=== PATIENT | male | born 1990 | race Asian ===

== ENCOUNTER 2016-06-17 11:13 | Emergency (ER) | payer MEDICAID ==
[~2016-06-17] VITALS: Ht 182.9 cm; Wt 99.8 kg
[2016-06-17 11:46] VITALS: BP 134/90
[2016-06-17 12:48] LABS: BASOPHILS # (AUTO) 0.1 K/uL (0.00-0.22); BASOPHILS % (AUTO) 1.5 % (0.0-2.0); EOSINOPHILS # (AUTO) 0.1 K/uL (0-0.4); EOSINOPHILS % (AUTO) 1.3 % (0.0-4.0); HEMATOCRIT 47.9 % (36-52); LYMPHOCYTES # (AUTO) 2.2 K/uL (2.0-11.5); MEAN CORPUSCULAR HEMOGLOBIN 29 pg (27-31); MEAN CORPUSCULAR HGB CONC 33 g/dL (33-37); MEAN CORPUSCULAR VOLUME 85 fL (80-94); MONOCYTES # (AUTO) 0.4 K/uL (0.8-1.0); MONOCYTES % (AUTO) 5.1 % (1.7-9.3); NEUTROPHILS # (AUTO) 5.3 K/uL (1.8-7.7); NEUTROPHILS % (AUTO) 65.1 % (42.2-75.2); PLATELET COUNT (AUTO) 446 K/uL (140-450); RED CELL DISTRIBUTION WIDTH 12.4 % (11.6-13.7); WHITE BLOOD COUNT (AUTO) 8.1 K/uL (4.8-10.8)
--- NOTE | 2016-06-17 12:51 | NUR ---
SPOKE W/POISON CONTROL AND ADVISED TO MONITOR LAB VALUES AND IF ANY DETECTABLE TYLENOL LEVELS MUCOMYST CAN BE STARTED, IF NO DETECTABLE TYLENOL LEVELS JUST MONITOR PTKwame Ying. NOTIFIED.
[2016-06-17 13:28] LABS: AMPHETAMINE, URINE NEG. ng/ml (NEG <=1000); BARBITURATE, URINE NEG. ng/ml (NEG <=200); BENZODIAZEPINE, URINE NEG. ng/mL (NEG <=200); CANNABINOID, URINE NEG. ng/mL (NEG <=50); COCAINE, URINE NEG. ng/mL (NEG <=300); OPIATE, URINE NEG. ng/mL (NEG <=2000); PHENCYCLIDINE SCREEN,URINE NEG. ng/mL (NEG <=25)
[2016-06-17 13:43] LABS: ANION GAP 14.1 (8-16); CALCIUM 9.5 mg/dL (8.5-10.1); CARBON DIOXIDE 26.9 mmol/L (21-32); CHLORIDE 102 mmol/L (98-107); CREATININE 0.9 mg/dL (0.6-1.3); GFR ARICAN-AMERICAN 132 mL/min (>90); GFR NON ARICAN-AMERICAN 109 mL/min (>90); GLUCOSE 97 mg/dL (74-106); SODIUM SERUM 139 mmol/L (136-145); UREA NITROGEN, BLOOD 9 mg/dL (7-18)
--- NOTE | 2016-06-17 13:46 | NUR ---
Patient ambulated to bed 03.
[2016-06-17 13:48] LABS: ALANINE AMINOTRANSFERASE 69 U/L (12-78); ALBUMIN 4.5 g/dL (3.4-5.0); ALKALINE PHOSPHATASE 53 U/L (46-116); ASPARTATE AMINOTRANSFERASE 29 U/L (15-37); TOTAL BILIRUBIN 0.7 mg/dL (0.0-1.0); TOTAL PROTEIN, SERUM 8.4 g/dL (6.4-8.2)
[2016-06-17 13:49] LABS: ACETAMINOPHEN < 0.5 ug/ml (10-30); SALICYLATE < 2.8 mg/dL (2.8-20.0)
--- NOTE | 2016-06-17 13:50 | NUR ---
PT PRESENTS TO ER FOR EVALUATION AFTER TAKING 12-14 500MG TYLENOL TABLETS FOR A MIGRAINE OVER THE COURSE OF 10 HOURS. LAST DOSE OF TYLENOL TAKEN AT 2200 LAST NOC. PT DENIES ANY MEDICAL HX OR ANY THOUGHTS OF HARMING HIMSELF.DENIES HEARING LOSS/CP/SOB/N/V AT THIS TIME;AAOX4;NEEDS ATTENDED;SAFETY MEASURES INSTITUTED;POSITIONED FOR COMFORT;ALL MONITORS IN PLACED.
--- NOTE | 2016-06-17 13:59 | NUR ---
DR LUIS AT BEDSIDE.
--- NOTE | 2016-06-17 14:10 | NUR ---
Patient discharged with v/s stable. Written and verbal after care instructions given and explained. Patient alert, oriented and verbalized understanding of instructions. Ambulatory with steady gait. All questions addressed prior to discharge. ID band removed. Patient advised to follow up with PMD.Opportunity to ask questions provided and answered.advised pt to increase fluid.
[2016-06-17 14:11] VITALS: BP 150/61
== END 2016-06-17 14:10 | disposition home or self-care (01) ==
LOC: MED 11:13
DX: T39.1X1A Poisoning by 4-Aminophenol derivatives, accidental (unintentional), initial encounter (principal); G43.909 Migraine, unspecified, not intractable, without status migrainosus; Y92.89 Other specified places as the place of occurrence of the external cause
CPT/HCPCS: 36415; 80053; 80305; 81002; 85025; 99284; G0480